=== PATIENT | male | born 1975 | race American Indian/Alaskan Native ===

== ENCOUNTER 2019-09-05 14:15 | Outpatient (CLI) | payer BC ==
--- NOTE | 2019-09-05 16:49 | Magnetic Resonance Report ---
MRI CERVICAL SPINE WITHOUT CONTRAST INDICATION / CLINICAL INFORMATION: MAIN: Cervicalgia M54.2, lt shoulder pain. TECHNIQUE: Multisequence, multiplanar images of the cervical spine were obtained. COMPARISON: None available. FINDINGS: CRANIOCERVICAL JUNCTION:No significant abnormality. ALIGNMENT: Mild straightening of cervical lordosis is VERTEBRAE:Normal marrow signal and vertebral body height for age. VISUALIZED SPINAL CORD: No significant abnormality. [id number] ANALYSIS: C2-3: No significant disc abnormality, spinal canal stenosis, or neural foraminal stenosis. C3-4: Midline bulging discs; neuroforamina are normal C4-5: Focal midline disc protrusion; neuroforamina are normal C5-6: Left lateral subarticular zone (lateral recess) disc protrusion extending into left foraminal z one; left neuroforamen is stenotic; spinal cord is not compromised C6-7: Shallow disc bulging towards the left side; neuroforamina are normal C7-T1: No significant disc abnormality, spinal canal stenosis, or neural foraminal stenosis. PARASPINAL SOFT TISSUES: No significant abnormality. ADDITIONAL FINDINGS: None. IMPRESSION: Disc protrusion on the left side at C5-C6 disc level extending into left neuroforamen; left foramina l stenoses Signer Name: Bren Sevilla MD Signed: 09/05/2019 4:45 PM Workstation Name: [employer]
== END 2019-09-05 14:16 | disposition home or self-care (01) ==
LOC: MRI 14:15
DX: M48.02 Spinal stenosis, cervical region (principal)
CPT/HCPCS: 72141